=== PATIENT | female | born 1995 | race Caucasian/White ===

== ENCOUNTER 2018-03-15 03:40 | Inpatient (IN) | payer OTHER ==
[2018-03-15] MEDS ORDERED: BUTORPHANOL 1 MG INJ IV (04:30)
[2018-03-15] MEDS ORDERED: IBUPROFEN 600 MG TAB PO (04:30)
[2018-03-15] MEDS ORDERED: OXYTOCIN 30 UNITS/LR 500 ML IV ×3 (04:30→12:00)
[2018-03-15] MEDS ORDERED: MISOPROSTOL 200 MCG TAB PR ×2 (04:30→12:00)
[2018-03-15] MEDS ORDERED: LIDOCAINE 1% (MPF) 30 ML INJ INJ (04:30)
[2018-03-15] MEDS ORDERED: CARBOPROST 250 MCG INJ IM ×2 (04:30→12:00)
[2018-03-15] MEDS ORDERED: METHYLERGONOVINE 0.2 MG INJ IM ×2 (04:30→12:00)
[2018-03-15] MEDS ORDERED: HYDROCODONE/APAP (5/325) TAB PO (04:30)
[2018-03-15] MEDS: LACTATED RINGER'S 1,000 ML IV ×3 (04:49→23:35)
[2018-03-15 05:38] LABS: ADD MAN DIFF? NO
[2018-03-15 05:43] LABS: ABNORMAL IP MESSAGE 1; BASOPHIL # 0.1 10^3/ul (0.0-0.1); BASOPHILS % 0.4 % (0.0-2.0); EOSINOPHILS # 0.1 10^3/ul (0.0-0.5); EOSINOPHILS % 0.4 % (0.0-7.0); HEMOGLOBIN 11.1 g/dl (12.0-16.0); LYMPHOCYTES # 2.1 10^3/ul (0.8-2.9); LYMPHOCYTES % 16.8 % (15.0-51.0); MEAN CORPUSCULAR HEMOGLOBIN 31.2 pg (29.0-33.0); MEAN CORPUSCULAR HGB CONC 33.6 g/dl (32.0-37.0); MEAN CORPUSCULAR VOLUME 92.7 fl (82.0-101.0); MEAN PLATELET VOLUME 13.3 fl (7.4-10.4); MONOCYTE # 1.1 10^3/ul (0.3-0.9); MONOCYTES % 9.1 % (0.0-11.0); NEUTROPHILS % 72.8 % (39.0-77.0); PLATELET COUNT 178 10^3/UL (140-415); RED BLOOD COUNT 3.56 10^6/ul (4.20-5.40); RED CELL DISTRIBUTION WIDTH 13.2 % (11.5-14.5)
[2018-03-15 05:43] LABS: WHITE BLOOD COUNT 12.4 10^3/ul (4.8-10.8)
[2018-03-15 05:50] LABS: POSITIVE DIFF @See below
[2018-03-15] MEDS: AMPICILLIN 2 GM/NS (PMX) 100 ML IV (05:54)
[2018-03-15 06:02] LABS: ALANINE AMINOTRANSFERASE 18 IU/L (13-69); ALBUMIN 3.7 g/dl (3.3-4.9); ALBUMIN/GLOBULIN RATIO 1.05; ALKALINE PHOSPHATASE 139 IU/L (42-121); ANION GAP 13 (8-16); ASPARTATE AMINO TRANSFERASE 21 IU/L (15-46); BILIRUBIN,INDIRECT 0.2 mg/dl (0-1.1); BILIRUBIN,TOTAL 0.2 mg/dl (0.2-1.3); BLOOD UREA NITROGEN 7 mg/dl (7-20); CALCIUM 9.2 mg/dl (8.4-10.2); CARBON DIOXIDE 26 mmol/L (21-31); CHLORIDE 107 mmol/L (97-110); CREATININE 0.49 mg/dl (0.44-1.00); GLUCOSE 70 mg/dl (70-220); POTASSIUM 3.5 mmol/L (3.5-5.1); SODIUM 142 mmol/L (135-144); TOTAL PROTEIN 7.2 g/dl (6.1-8.1)
[2018-03-15 06:13] LABS: INR 0.88; PT RATIO 0.9
[2018-03-15 06:14] LABS: PARTIAL THROMBOPLASTIN TIME 28.1 Sec (25.0-35.0)
[2018-03-15] MEDS: OXYTOCIN 30 UNITS/LR 500 ML IV ×3 (06:25→09:14)
[2018-03-15] MEDS: BUTORPHANOL 2 MG INJ IV (06:32)
[2018-03-15 06:36] LABS: HEPATITIS B SURFACE ANTIGEN NEGATIVE (NEGATIVE)
[2018-03-15] MEDS ORDERED: OXYTOCIN 30 UNITS/LR 500 ML BAG IV (07:00)
[2018-03-15] MEDS ORDERED: BUPIVACAINE 0.75%/DEXT (SPINAL) 2 ML INJ (07:40)
[2018-03-15] MEDS ORDERED: FENTAnyl 50 MCG/ML VIAL (07:41)
[2018-03-15] MEDS ORDERED: nitroGLYCerin 50 MG INJ (08:08)
[2018-03-15] MEDS ORDERED: AMPICILLIN 1 GM/NS (PMX) 50 ML IV (08:30)
[2018-03-15 10:56] LABS: AMPHETAMINE/METHAMPHETAMINE Negative (NEGATIVE); BARBITURATES Negative (NEGATIVE); BENZODIAZEPINES Negative (NEGATIVE); CANNABINOIDS Negative (NEGATIVE); COCAINE Negative (NEGATIVE); OPIATES Negative (NEGATIVE)
[2018-03-15] MEDS ORDERED: ZOLPIDEM 5 MG TAB PO (12:00)
[2018-03-15] MEDS: IBUPROFEN 600 MG TAB PO ×3 (12:42→23:35)
[2018-03-15] MEDS: BENZOCAINE 20% 56 ML SPRAY TOP (12:43)
[2018-03-15] MEDS: LANOLIN 7 GM TUBE TOP (12:43)
[2018-03-15] MEDS: WITCH HAZEL/GLYCERIN PAD PR (12:44)
[2018-03-15] MEDS ORDERED: CEFAZOLIN 2 GM/50 ML (PMX) 50 ML IVPB (14:00)
[2018-03-15 14:58] LABS: RAPID PLASMA REAGIN NONREACTIVE (NR)
[2018-03-15] MEDS: CEFAZOLIN 2 GM/50 ML (PMX) 50 ML IVPB ×2 (16:18→23:34)
[2018-03-15] MEDS: SENNA/DOCUSATE NA (8.6MG/50MG) TAB PO (21:43)
[2018-03-16] MEDS: LACTATED RINGER'S 1,000 ML IV ×3 (04:16→20:16)
[2018-03-16] MEDS: OXYCODONE/ASPIRIN (4.88/325) TAB PO ×2 (04:55→20:14)
[2018-03-16] MEDS: IBUPROFEN 600 MG TAB PO ×4 (05:39→23:39)
[2018-03-16] MEDS: CEFAZOLIN 2 GM/50 ML (PMX) 50 ML IVPB ×3 (08:05→23:39)
[2018-03-16] MEDS: SENNA/DOCUSATE NA (8.6MG/50MG) TAB PO ×2 (09:03→20:14)
[2018-03-16 09:33] LABS: ADD MAN DIFF? NO
[2018-03-16 09:35] LABS: WHITE BLOOD COUNT 10.5 10^3/ul (4.8-10.8)
[2018-03-16 09:35] LABS: BASOPHILS % 0.3 % (0.0-2.0); EOSINOPHILS # 0.1 10^3/ul (0.0-0.5); EOSINOPHILS % 0.9 % (0.0-7.0); HEMATOCRIT 33.3 % (37.0-47.0); HEMOGLOBIN 10.9 g/dl (12.0-16.0); LYMPHOCYTES # 2.1 10^3/ul (0.8-2.9); LYMPHOCYTES % 19.8 % (15.0-51.0); MEAN CORPUSCULAR HEMOGLOBIN 31.4 pg (29.0-33.0); MEAN CORPUSCULAR HGB CONC 32.7 g/dl (32.0-37.0); MEAN PLATELET VOLUME 12.9 fl (7.4-10.4); MONOCYTE # 0.7 10^3/ul (0.3-0.9); MONOCYTES % 6.8 % (0.0-11.0); NEUTROPHIL # 7.6 10^3/ul (1.6-7.5); NEUTROPHILS % 71.9 % (39.0-77.0); PLATELET COUNT 181 10^3/UL (140-415); RED BLOOD COUNT 3.47 10^6/ul (4.20-5.40); RED CELL DISTRIBUTION WIDTH 13.6 % (11.5-14.5)
[2018-03-16 11:01] LABS: RUBELLA ANTIBODY - IGG 2.67 index
[2018-03-17] MEDS: LACTATED RINGER'S 1,000 ML IV (04:16)
[2018-03-17] MEDS: IBUPROFEN 600 MG TAB PO ×2 (05:32→13:18)
[2018-03-17] MEDS: CEFAZOLIN 2 GM/50 ML (PMX) 50 ML IVPB (08:00)
[2018-03-17] MEDS: SENNA/DOCUSATE NA (8.6MG/50MG) TAB PO (09:08)
[2018-03-17] MEDS: DIPHTH/TET/ACEL PERTUSS (ADULT) 0.5 ML VIAL IM* (13:19)
[2018-03-19 13:03] LABS: RUBELLA ANTIBODY - IGM <20.00 AU/mL
== END 2018-03-17 15:29 | disposition home or self-care (01) | DRG 767 ==
LOC: OBT 03:40 → L-D 03:40 → OBT 04:12 → L-D 04:12 → PP1 11:23
PROC: 10E0XZZ Delivery of Products of Conception, External Approach (ICD-10-PCS; principal; 2018-03-15)
PROC: 10D17ZZ Extraction of Products of Conception, Retained, Via Natural or Artificial Opening (ICD-10-PCS; 2018-03-15)
PROC: 0W3R7ZZ Control Bleeding in Genitourinary Tract, Via Natural or Artificial Opening (ICD-10-PCS; 2018-03-15)
DX: O72.0 Third-stage hemorrhage (principal); Z37.0 Single live birth; Z3A.37 37 weeks gestation of pregnancy
CPT/HCPCS: 80053; 80307; 85025; 85610; 85730; 86592; 86762; 86850; 86900; 86901; 87340; 88307; 90715